=== PATIENT | male | born 1940 | race Caucasian/White ===

== ENCOUNTER 2021-12-24 12:11 | Inpatient (IN) ==
[2021-12-24 13:20] LABS: Calcium 9.1 MG/DL (8.5-10.1); Osmolality,Calculated 332.8 MOS/KG (273-304)
[2021-12-24 13:24] LABS: Potassium 7.1 MMOL/L (3.5-5.1)
[2021-12-24] MEDS ORDERED: DEXTROSE 50% 25 GM/50 ML VIAL IV STA (13:27)
[2021-12-24] MEDS ORDERED: INSULIN REGULAR 100 UNIT/ML IV STA (13:28)
[2021-12-24] MEDS ORDERED: ALBUTEROL 2.5 MG/3 ML NEB RESP TX STA (13:28)
[2021-12-24] MEDS ORDERED: DEXTROSE 5% NACL 0.45% 1,000 ML IV SCH (13:30)
[2021-12-24] MEDS ORDERED: DEXTROSE 50% 25 GM/50 ML SYRINGE IV ONE (13:38)
[2021-12-24 13:46] LABS: Bilirubin,Urine Negative (Negative); Blood, Urine Large mg/dL (Negative); Glucose,Urine (UA) Negative (Negative); Ketones,Urine Negative (Negative); Mucus,Urine Occasional /LPF (Occasional); Nitrite,Urine Negative (Negative); Protein,Urine 30 mg/dL (Negative); RBC,Urine 1946 /HPF (0-4); Urine Appearance CLOUDY (Clear); Urine Color Red (Yellow); Urine Specific Gravity 1.013 (1.001-1.035); Urine Urobilinogen < 2.0 eU/dL (<2.0)
[2021-12-24] MEDS ORDERED: SODIUM ZIRCONIUM CYCLOSILICATE 10 GM PACK PO ONE (14:49)
[2021-12-24] MEDS ORDERED: ONDANSETRON 4 MG/2 ML VIAL IV PRN (14:49)
[2021-12-24] MEDS ORDERED: hydrALAZINE 20 MG/1 ML VIAL IV PRN (14:49)
[2021-12-24] MEDS ORDERED: cefTRIAXone 2,000 MG in SODIUM CHLORIDE 0.9% 100 ML IV SCH (15:00)
[2021-12-24] MEDS ORDERED: SODIUM BICARB INJ 100 MEQ in STERILE WATER INJ 1,000 ML IV SCH (15:30)
[2021-12-24] MEDS ORDERED: ALBUTEROL 2.5 MG/3 ML NEB RESP TX SCH (15:30)
[2021-12-24 16:35] LABS: Arterial Base Excess iSTAT -5 MMOL/L (-2.5-2.5); Arterial Bicarbonate iSTAT 19.6 MMOL/L (20-26); Arterial O2 Saturation iSTAT 98 % (95-100); Arterial PCO2 iSTAT 33 MM HG (35-48); Arterial PO2 iSTAT 97 MM HG (80-95); Arterial Total CO2 iSTAT 21 MMO/L (23-27); Arterial pH iSTAT 7.383 (7.35-7.45)
[2021-12-24] MEDS: POLYETHYLENE GLYCOL POWDER 17 GM PACK PO SCH ×2 (16:45→20:30)
[2021-12-24] MEDS: DUTASTERIDE 0.5 MG CAPSULE PO SCH (20:23)
[2021-12-24] MEDS: TAMSULOSIN 0.4 MG CAPSULE PO SCH (20:24)
[2021-12-24] MEDS: DOCUSATE SODIUM 100 MG CAPSULE PO SCH (20:24)
[2021-12-24] MEDS: HEPARIN 5,000 UNIT/1 ML VIAL SUBCUT SCH (20:28)
[2021-12-24] MEDS ORDERED: SODIUM ZIRCONIUM CYCLOSILICATE 10 GM PACK PO SCH (21:00)
[2021-12-25] MEDS ORDERED: LIDOCAINE 2% TOP JELLY 20 ML VIAL INTRAURETH ONE (00:53)
[2021-12-25 04:57] LABS: Basophils % 0.2 % (0.0-0.8); Hematocrit 36.9 VOL% (42.0-52.0); Hemoglobin 11.9 GM/DL (14.0-18.0); Immature Granulocytes % 1.4 %; Immature Granulocytes Absolute 0.16 #; Lymphocytes # 0.5 10*3/uL (1.4-4.0); Lymphocytes % 4.2 % (21.2-54.2); Mean Corpuscular HGB Conc 32.2 GM/DL (32-36); Mean Corpuscular Volume 87.6 FL (87-102); Mean Platelet Volume 9.4 FL (9.6-12.0); Monocytes # 1.1 10*3/uL (0.11-0.8); Monocytes % 9.4 % (1.7-12.7); Neutrophils % 84.8 % (38.7-73.9); Platelet Count 238 T/CUMM (130-400); Red Blood Count 4.21 MC/CUMM (3.8-5.5); White Blood Count 11.9 T/CUMM (4-12)
[2021-12-25 05:23] LABS: Lymphocytes 6 % (20-55); Platelet Estimate Adequate; Total Cells Counted 100
[2021-12-25 05:28] LABS: Albumin 2.9 G/DL (3.4-5.0); Bilirubin,Total 0.8 MG/DL (0.20-1.00); Calcium 9.6 MG/DL (8.5-10.1); Osmolality,Calculated 322.4 MOS/KG (273-304); Potassium 4.8 MMOL/L (3.5-5.1); Thyroid Stimulating Hormone 1.49 uIU/ml (0.358-3.74); Total Protein 6.9 G/DL (6.4-8.2)
[2021-12-25] MEDS: HEPARIN 5,000 UNIT/1 ML VIAL SUBCUT SCH ×2 (08:22→21:44)
[2021-12-25] MEDS: DOCUSATE SODIUM 100 MG CAPSULE PO SCH ×2 (08:22→21:42)
[2021-12-25] MEDS: POLYETHYLENE GLYCOL POWDER 17 GM PACK PO SCH ×2 (08:23→21:42)
[2021-12-25] MEDS ORDERED: ZINC OXIDE PASTE 113 GM TUBE TOP PRN (13:51)
[2021-12-25] MEDS: DIVALPROEX SPRINKLE 125 MG CAPSULE PO SCH (21:42)
[2021-12-25] MEDS: TAMSULOSIN 0.4 MG CAPSULE PO SCH (21:42)
[2021-12-25] MEDS: DUTASTERIDE 0.5 MG CAPSULE PO SCH (21:42)
[2021-12-26 05:07] LABS: Basophils % 0.3 % (0.0-0.8); Hematocrit 37.1 VOL% (42.0-52.0); Hemoglobin 11.7 GM/DL (14.0-18.0); Immature Granulocytes % 1.3 %; Immature Granulocytes Absolute 0.15 #; Lymphocytes # 0.8 10*3/uL (1.4-4.0); Lymphocytes % 6.6 % (21.2-54.2); Mean Corpuscular HGB Conc 31.5 GM/DL (32-36); Mean Corpuscular Volume 90.5 FL (87-102); Mean Platelet Volume 9.3 FL (9.6-12.0); Monocytes # 1.2 10*3/uL (0.11-0.8); Neutrophils % 81.8 % (38.7-73.9); Platelet Count 240 T/CUMM (130-400); Red Cell Distribution Width 12.7 % (9.3-17.3); White Blood Count 11.6 T/CUMM (4-12)
[2021-12-26 05:32] LABS: Albumin 2.6 G/DL (3.4-5.0); Bilirubin,Total 0.7 MG/DL (0.20-1.00); Calcium 9.4 MG/DL (8.5-10.1); Osmolality,Calculated 314.9 MOS/KG (273-304); Potassium 3.9 MMOL/L (3.5-5.1); Total Protein 6.5 G/DL (6.4-8.2)
[2021-12-26] MEDS: HEPARIN 5,000 UNIT/1 ML VIAL SUBCUT SCH ×2 (09:31→22:12)
[2021-12-26] MEDS: POLYETHYLENE GLYCOL POWDER 17 GM PACK PO SCH ×2 (12:41→22:13)
[2021-12-26] MEDS: MEMANTINE 5 MG TABLET PO SCH (12:42)
[2021-12-26] MEDS: DOCUSATE SODIUM 100 MG CAPSULE PO SCH ×2 (12:42→22:12)
[2021-12-26] MEDS: DIVALPROEX SPRINKLE 125 MG CAPSULE PO SCH ×2 (12:42→22:12)
[2021-12-26] MEDS: DUTASTERIDE 0.5 MG CAPSULE PO SCH (22:12)
[2021-12-26] MEDS: TAMSULOSIN 0.4 MG CAPSULE PO SCH (22:12)
[2021-12-26] MEDS: DEXTROSE 5% 1,000 ML IV SCH (22:38)
[2021-12-27 04:58] LABS: Basophils % 0.3 % (0.0-0.8); Eosinophils % 0.1 % (0.00-10.9); Hematocrit 40.7 VOL% (42.0-52.0); Hemoglobin 12.4 GM/DL (14.0-18.0); Immature Granulocytes Absolute 0.25 #; Lymphocytes # 0.9 10*3/uL (1.4-4.0); Mean Corpuscular HGB Conc 30.5 GM/DL (32-36); Mean Platelet Volume 9.5 FL (9.6-12.0); Monocytes % 7.8 % (1.7-12.7); Neutrophils % 82.8 % (38.7-73.9); Platelet Count 269 T/CUMM (130-400); Red Blood Count 4.33 MC/CUMM (3.8-5.5); Red Cell Distribution Width 12.6 % (9.3-17.3); White Blood Count 12.3 T/CUMM (4-12)
[2021-12-27 05:24] LABS: Albumin 2.6 G/DL (3.4-5.0); Bilirubin,Total 0.5 MG/DL (0.20-1.00); Calcium 9.2 MG/DL (8.5-10.1); Osmolality,Calculated 316.9 MOS/KG (273-304); Potassium 3.5 MMOL/L (3.5-5.1); Total Protein 6.5 G/DL (6.4-8.2)
[2021-12-27] MEDS ORDERED: POTASSIUM CHLORIDE 20 MEQ TABLET PO ONE (08:14)
[2021-12-27] MEDS: DEXTROSE 5% 1,000 ML IV SCH ×2 (08:57→09:02)
[2021-12-27] MEDS: MEMANTINE 5 MG TABLET PO SCH (09:00)
[2021-12-27] MEDS: POLYETHYLENE GLYCOL POWDER 17 GM PACK PO SCH ×2 (09:00→20:54)
[2021-12-27] MEDS: DOCUSATE SODIUM 100 MG CAPSULE PO SCH ×2 (09:00→20:54)
[2021-12-27] MEDS: HEPARIN 5,000 UNIT/1 ML VIAL SUBCUT SCH ×2 (09:01→21:01)
[2021-12-27] MEDS: DIVALPROEX SPRINKLE 125 MG CAPSULE PO SCH ×2 (09:01→20:54)
[2021-12-27] MEDS ORDERED: POTASSIUM CHLORIDE INJ 20 MEQ in DEXTROSE 5% 1,000 ML IV SCH (15:31)
[2021-12-27] MEDS: DEXTROSE 5% KCL 20 MEQ 20 MEQ/1,000 ML BAG IV SCH (17:30)
[2021-12-27] MEDS: DUTASTERIDE 0.5 MG CAPSULE PO SCH (20:54)
[2021-12-27] MEDS: TAMSULOSIN 0.4 MG CAPSULE PO SCH (20:54)
[2021-12-28] MEDS: DEXTROSE 5% KCL 20 MEQ 20 MEQ/1,000 ML BAG IV SCH ×4 (00:35→21:26)
[2021-12-28 06:05] LABS: Basophils # 0.1 10*3/uL (0.0-0.2); Basophils % 0.3 % (0.0-0.8); Eosinophils # 0.1 10*3/uL (0.0-0.87); Eosinophils % 0.5 % (0.00-10.9); Hematocrit 36.5 VOL% (42.0-52.0); Hemoglobin 11.3 GM/DL (14.0-18.0); Immature Granulocytes % 2.3 %; Lymphocytes # 1.2 10*3/uL (1.4-4.0); Lymphocytes % 7.1 % (21.2-54.2); Mean Corpuscular Volume 91.5 FL (87-102); Mean Platelet Volume 9.8 FL (9.6-12.0); Monocytes # 1.1 10*3/uL (0.11-0.8); Monocytes % 6.5 % (1.7-12.7); Neutrophils % 83.3 % (38.7-73.9); Platelet Count 265 T/CUMM (130-400); Red Blood Count 3.99 MC/CUMM (3.8-5.5); Red Cell Distribution Width 12.6 % (9.3-17.3); White Blood Count 17.2 T/CUMM (4-12)
[2021-12-28 06:23] LABS: Albumin 2.2 G/DL (3.4-5.0); Bilirubin,Total 0.4 MG/DL (0.20-1.00); Calcium 8.1 MG/DL (8.5-10.1); Osmolality,Calculated 292.4 MOS/KG (273-304); Potassium 3.5 MMOL/L (3.5-5.1); Total Protein 5.7 G/DL (6.4-8.2)
[2021-12-28] MEDS ORDERED: POTASSIUM CHLORIDE 20 MEQ TABLET PO ONE ×2 (07:52→11:00)
[2021-12-28] MEDS: DOCUSATE SODIUM 100 MG CAPSULE PO SCH ×2 (09:49→21:28)
[2021-12-28] MEDS: MEMANTINE 5 MG TABLET PO SCH (09:50)
[2021-12-28] MEDS: POLYETHYLENE GLYCOL POWDER 17 GM PACK PO SCH ×2 (09:50→21:28)
[2021-12-28] MEDS: DIVALPROEX SPRINKLE 125 MG CAPSULE PO SCH ×2 (09:50→21:27)
[2021-12-28] MEDS: HEPARIN 5,000 UNIT/1 ML VIAL SUBCUT SCH ×2 (12:23→22:43)
[2021-12-28 19:20] LABS: Bilirubin,Urine Negative (Negative); Blood, Urine Large mg/dL (Negative); Glucose,Urine (UA) Negative (Negative); Ketones,Urine Negative (Negative); Nitrite,Urine Negative (Negative); Protein,Urine 30 mg/dL (Negative); Urine Appearance Clear (Clear); Urine Color Yellow (Yellow)
[2021-12-28 19:22] LABS: Mucus,Urine Occasional /LPF (Occasional); RBC,Urine 170 /HPF (0-4); Squamous Epithelial Cell,Urine Occasional /HPF (0-10)
[2021-12-28] MEDS: TAMSULOSIN 0.4 MG CAPSULE PO SCH (21:27)
[2021-12-28] MEDS: DUTASTERIDE 0.5 MG CAPSULE PO SCH (21:27)
[2021-12-29] MEDS: DEXTROSE 5% KCL 20 MEQ 20 MEQ/1,000 ML BAG IV SCH ×2 (04:21→12:09)
[2021-12-29 05:27] LABS: Basophils # 0.1 10*3/uL (0.0-0.2); Basophils % 0.4 % (0.0-0.8); Eosinophils # 0.2 10*3/uL (0.0-0.87); Hematocrit 36.5 VOL% (42.0-52.0); Hemoglobin 11.2 GM/DL (14.0-18.0); Immature Granulocytes % 3.1 %; Immature Granulocytes Absolute 0.61 #; Lymphocytes # 1.6 10*3/uL (1.4-4.0); Lymphocytes % 8.3 % (21.2-54.2); Mean Corpuscular HGB Conc 30.7 GM/DL (32-36); Mean Corpuscular Volume 91.7 FL (87-102); Mean Platelet Volume 10.1 FL (9.6-12.0); Monocytes # 1.5 10*3/uL (0.11-0.8); Monocytes % 7.6 % (1.7-12.7); Neutrophils % 79.6 % (38.7-73.9); Platelet Count 251 T/CUMM (130-400); Red Blood Count 3.98 MC/CUMM (3.8-5.5); Red Cell Distribution Width 12.5 % (9.3-17.3); White Blood Count 19.7 T/CUMM (4-12)
[2021-12-29 06:04] LABS: Albumin 1.7 G/DL (3.4-5.0); Bilirubin,Total 0.5 MG/DL (0.20-1.00); Calcium 7.6 MG/DL (8.5-10.1); Osmolality,Calculated 274.5 MOS/KG (273-304); Potassium 4.3 MMOL/L (3.5-5.1); Total Protein 5.4 G/DL (6.4-8.2)
[2021-12-29 06:19] LABS: Lymphocytes 9 % (20-55); Total Cells Counted 100
[2021-12-29 06:20] LABS: Hypochromia Slight; Microcytosis 1+; Polychromasia Slight
[2021-12-29 06:21] LABS: Platelet Estimate Normal
[2021-12-29] MEDS: DIVALPROEX SPRINKLE 125 MG CAPSULE PO SCH ×2 (08:43→22:29)
[2021-12-29] MEDS: DOCUSATE SODIUM 100 MG CAPSULE PO SCH ×2 (08:43→22:29)
[2021-12-29] MEDS: POLYETHYLENE GLYCOL POWDER 17 GM PACK PO SCH ×2 (08:44→22:30)
[2021-12-29] MEDS: MEMANTINE 5 MG TABLET PO SCH (08:44)
[2021-12-29] MEDS: HEPARIN 5,000 UNIT/1 ML VIAL SUBCUT SCH ×2 (08:47→22:29)
[2021-12-29] MEDS: cefTRIAXone 1,000 MG in SODIUM CHLORIDE 0.9% 100 ML IV SCH (12:14)
[2021-12-29] MEDS: AZITHROMYCIN INJ 500 MG in SODIUM CHLORIDE 0.9% 250 ML IV SCH (13:12)
[2021-12-29] MEDS: ALPRAZolam 0.25 MG TABLET PO PRN (19:33)
[2021-12-29] MEDS: DUTASTERIDE 0.5 MG CAPSULE PO SCH (22:29)
[2021-12-29] MEDS: TAMSULOSIN 0.4 MG CAPSULE PO SCH (22:29)
[2021-12-30] MEDS: ACETAMINOPHEN 325 MG TABLET PO PRN ×2 (00:21→06:38)
[2021-12-30 05:48] LABS: Basophils # 0.1 10*3/uL (0.0-0.2); Basophils % 0.4 % (0.0-0.8); Eosinophils # 0.1 10*3/uL (0.0-0.87); Eosinophils % 0.9 % (0.00-10.9); Hematocrit 36.1 VOL% (42.0-52.0); Hemoglobin 11.3 GM/DL (14.0-18.0); Immature Granulocytes % 4.5 %; Immature Granulocytes Absolute 0.63 #; Lymphocytes # 1.3 10*3/uL (1.4-4.0); Lymphocytes % 9.1 % (21.2-54.2); Mean Corpuscular HGB Conc 31.3 GM/DL (32-36); Mean Corpuscular Volume 89.1 FL (87-102); Mean Platelet Volume 9.6 FL (9.6-12.0); Monocytes # 1.2 10*3/uL (0.11-0.8); Monocytes % 8.9 % (1.7-12.7); Neutrophils % 76.2 % (38.7-73.9); Platelet Count 314 T/CUMM (130-400); Red Blood Count 4.05 MC/CUMM (3.8-5.5); Red Cell Distribution Width 12.4 % (9.3-17.3); White Blood Count 13.9 T/CUMM (4-12)
[2021-12-30 05:58] LABS: Albumin 2.2 G/DL (3.4-5.0); Bilirubin,Total 0.5 MG/DL (0.20-1.00); Calcium 8.2 MG/DL (8.5-10.1); Osmolality,Calculated 280.3 MOS/KG (273-304); Potassium 3.9 MMOL/L (3.5-5.1)
[2021-12-30 06:42] LABS: Anisocytosis 1+; Band Neutrophils 1 % (0-10); Eosinophils 2 % (0-10); Lymphocytes 12 % (20-55); Platelet Estimate Normal; Total Cells Counted 100
[2021-12-30 06:43] LABS: Burr Cells Few
[2021-12-30] MEDS: DIVALPROEX SPRINKLE 125 MG CAPSULE PO SCH ×2 (09:27→21:53)
[2021-12-30] MEDS: MEMANTINE 5 MG TABLET PO SCH (09:28)
[2021-12-30] MEDS: DOCUSATE SODIUM 100 MG CAPSULE PO SCH ×2 (09:28→21:52)
[2021-12-30] MEDS: HEPARIN 5,000 UNIT/1 ML VIAL SUBCUT SCH ×2 (09:28→21:52)
[2021-12-30] MEDS: POLYETHYLENE GLYCOL POWDER 17 GM PACK PO SCH ×2 (09:30→21:52)
[2021-12-30] MEDS: DEXTROSE 5% KCL 20 MEQ 20 MEQ/1,000 ML BAG IV SCH ×2 (11:16→11:17)
[2021-12-30] MEDS: cefTRIAXone 1,000 MG in SODIUM CHLORIDE 0.9% 100 ML IV SCH (11:17)
[2021-12-30] MEDS: AZITHROMYCIN INJ 500 MG in SODIUM CHLORIDE 0.9% 250 ML IV SCH (14:01)
[2021-12-30] MEDS: TAMSULOSIN 0.4 MG CAPSULE PO SCH (21:52)
[2021-12-30] MEDS: ALPRAZolam 0.25 MG TABLET PO PRN (21:53)
[2021-12-30] MEDS: DUTASTERIDE 0.5 MG CAPSULE PO SCH (22:24)
[2021-12-31 06:32] LABS: Basophils # 0.1 10*3/uL (0.0-0.2); Basophils % 0.7 % (0.0-0.8); Eosinophils # 0.1 10*3/uL (0.0-0.87); Eosinophils % 1.1 % (0.00-10.9); Hematocrit 38.5 VOL% (42.0-52.0); Hemoglobin 12.1 GM/DL (14.0-18.0); Immature Granulocytes % 5.1 %; Immature Granulocytes Absolute 0.63 #; Lymphocytes # 1.2 10*3/uL (1.4-4.0); Mean Corpuscular HGB Conc 31.4 GM/DL (32-36); Mean Corpuscular Volume 90.2 FL (87-102); Mean Platelet Volume 10.9 FL (9.6-12.0); Monocytes # 1.3 10*3/uL (0.11-0.8); Monocytes % 10.7 % (1.7-12.7); Neutrophils % 72.4 % (38.7-73.9); Platelet Count 239 T/CUMM (130-400); Red Blood Count 4.27 MC/CUMM (3.8-5.5); Red Cell Distribution Width 12.5 % (9.3-17.3); White Blood Count 12.3 T/CUMM (4-12)
[2021-12-31 06:44] LABS: Calcium 8.2 MG/DL (8.5-10.1); Potassium 4.4 MMOL/L (3.5-5.1)
[2021-12-31 07:21] LABS: Lymphocytes 9 % (20-55); Metamyelocytes 2 %; Nucleated Red Blood Cells 1 /100 WBC (0-5); Platelet Estimate Normal; Total Cells Counted 100
[2021-12-31] MEDS: POLYETHYLENE GLYCOL POWDER 17 GM PACK PO SCH ×2 (08:31→20:52)
[2021-12-31] MEDS: DIVALPROEX SPRINKLE 125 MG CAPSULE PO SCH ×2 (08:32→20:52)
[2021-12-31] MEDS: MEMANTINE 5 MG TABLET PO SCH (08:32)
[2021-12-31] MEDS: DOCUSATE SODIUM 100 MG CAPSULE PO SCH ×2 (08:32→20:52)
[2021-12-31] MEDS: HEPARIN 5,000 UNIT/1 ML VIAL SUBCUT SCH ×2 (08:37→20:52)
[2021-12-31] MEDS: cefTRIAXone 1,000 MG in SODIUM CHLORIDE 0.9% 100 ML IV SCH (11:20)
[2021-12-31] MEDS: AZITHROMYCIN INJ 500 MG in SODIUM CHLORIDE 0.9% 250 ML IV SCH (13:02)
[2021-12-31] MEDS: DEXTROSE 5% KCL 20 MEQ 20 MEQ/1,000 ML BAG IV SCH ×3 (17:49→17:51)
[2021-12-31] MEDS: TAMSULOSIN 0.4 MG CAPSULE PO SCH (20:52)
[2021-12-31] MEDS: DUTASTERIDE 0.5 MG CAPSULE PO SCH (20:52)
[2022-01-01] MEDS: DEXTROSE 5% KCL 20 MEQ 20 MEQ/1,000 ML BAG IV SCH ×2 (01:36→09:06)
[2022-01-01 07:22] LABS: Basophils # 0.1 10*3/uL (0.0-0.2); Basophils % 0.5 % (0.0-0.8); Eosinophils # 0.1 10*3/uL (0.0-0.87); Eosinophils % 0.8 % (0.00-10.9); Hematocrit 36.9 VOL% (42.0-52.0); Hemoglobin 11.6 GM/DL (14.0-18.0); Immature Granulocytes % 3.9 %; Immature Granulocytes Absolute 0.55 #; Lymphocytes # 1.3 10*3/uL (1.4-4.0); Lymphocytes % 8.9 % (21.2-54.2); Mean Corpuscular HGB Conc 31.4 GM/DL (32-36); Mean Corpuscular Volume 87.6 FL (87-102); Mean Platelet Volume 9.8 FL (9.6-12.0); Monocytes # 1.5 10*3/uL (0.11-0.8); Monocytes % 10.4 % (1.7-12.7); Neutrophils % 75.5 % (38.7-73.9); Platelet Count 376 T/CUMM (130-400); Red Blood Count 4.21 MC/CUMM (3.8-5.5); Red Cell Distribution Width 12.6 % (9.3-17.3); White Blood Count 14.2 T/CUMM (4-12)
[2022-01-01 07:37] LABS: Calcium 8.1 MG/DL (8.5-10.1); Osmolality,Calculated 269.1 MOS/KG (273-304); Potassium 4.4 MMOL/L (3.5-5.1)
[2022-01-01 07:45] LABS: Eosinophils 1 % (0-10); Hypochromia Slight; Lymphocytes 11 % (20-55); Microcytosis Slight; Platelet Estimate Adequate; Total Cells Counted 100
[2022-01-01] MEDS: DOCUSATE SODIUM 100 MG CAPSULE PO SCH (09:05)
[2022-01-01] MEDS: POLYETHYLENE GLYCOL POWDER 17 GM PACK PO SCH (09:05)
[2022-01-01] MEDS: HEPARIN 5,000 UNIT/1 ML VIAL SUBCUT SCH (09:06)
[2022-01-01] MEDS: MEMANTINE 5 MG TABLET PO SCH (09:06)
[2022-01-01] MEDS: DIVALPROEX SPRINKLE 125 MG CAPSULE PO SCH (09:06)
[2022-01-01] MEDS: cefTRIAXone 1,000 MG in SODIUM CHLORIDE 0.9% 100 ML IV SCH (10:06)
[2022-01-01] MEDS ORDERED: CEFDINIR 300 MG CAPSULE PO SCH (11:00)
[2022-01-01 12:13] VITALS: BP 107/54
[2022-01-02] MEDS ORDERED: predniSONE 20 MG TABLET PO SCH (09:00)
[2022-01-02] MEDS ORDERED: AZITHROMYCIN 250 MG TABLET PO SCH (09:00)
== END 2022-01-01 12:37 | DRG 682 ==
LOC: EDUNIT# → EDBD → EDSEX → N.ED 12:11 → N.EDINP 14:37 → N.5E 15:23
PROVIDERS: ADMIT Hospitalist; ATTEND Hospitalist